=== PATIENT | female | born 1975 | race Asian ===

== ENCOUNTER 2017-02-21 20:27 | Emergency (ER) | payer OTHER ==
[2017-02-21 20:34] VITALS: BP 111/75; PULSE 82; TEMP 98.3; BMI 19.3
[2017-02-21 20:38] LABS: PH,URINE 7.5 (4.5-8); URINE BILIRUBIN Negative (NEGATIVE); URINE BLOOD 3+ (NEGATIVE); URINE COLOR YELLOW; URINE GLUCOSE (UA) Negative (NEGATIVE); URINE KETONE Negative (NEGATIVE); URINE LEUK ESTERASE Negative (NEGATIVE); URINE NITRITE Negative (NEGATIVE); URINE PROTEIN Trace (NEGATIVE)
[2017-02-21 20:39] LABS: URINE APPEARANCE SL CLOUDY
--- NOTE | 2017-02-21 21:06 | PDOC ---
History of Present Illness - General History Source: Patient - History of Present Illness Initial Comments: 02/21/17 21:20 The patient is a 41 year old female, 8 weeks , with a significant past medical history of hypothyroidism, who presents to the emergency department with vaginal spotting for 4 days and new onset of left lower quadrant pain today. The patient reports brownish, light spotting for the first 3 days, however, reports the discharge is more red today. She states she was not concerned about the spotting at first because the brown spotting happened when I was with my 13 year old. She states she became concerned today when the spotting was red and associated with some very mild left lower quadrant cramping. She denies seeing her nutritional services host for this , however, has an appointment scheduled and reportedly called the office prior to her arrival today where she was advised to come to the ED for evaluation. She denies chest pain, shortness of breath, headache and dizziness. She denies fever, chills, nausea, vomit, diarrhea and constipation. She denies dysuria, frequency, urgency and hematuria. Allergies: NKDA Past surgical history: none reported Social history: denies toxic habits <Abi Sandoval - Last Filed: 02/21/17 21:20> <Eduardo Storey - Last Filed: 02/22/17 04:39> - General Chief Complaint: Pain, Acute Stated Complaint: LLQ PAIN , AND BLEEDING Time Seen by Provider: 02/21/17 20:39 Past History <Abi Sandoval - Last Filed: 02/21/17 21:20> - Past Medical History COPD: No Other medical history: DENIES - Suicide/Smoking/Psychosocial Hx Smoking History: Never smoked Have you smoked in the past 12 months: No Information on smoking cessation initiated: No Hx Alcohol Use: No Drug/Substance Use Hx: No Substance Use Type: None <Eduardo Storey - Last Filed: 02/22/17 04:39> - Past Medical History Allergies/Adverse Reactions: Allergies Allergy/AdvReac Type Severity Reaction Status Date / Time No Known Allergies Allergy Verified 02/21/17 20:29 Home Medications: Ambulatory Orders NK [No Known Home Medication] 02/21/17 Review of Systems - Review of Systems Able to Perform ROS?: Yes Comments:: 02/21/17 21:20 CONSTITUTIONAL: Absent: fever, chills, diaphoresis, generalized weakness, malaise, loss of appetite HEENT: Absent: rhinorrhea, nasal congestion, throat pain, throat swelling, difficulty swallowing, mouth swelling, ear pain, eye pain, visual Changes CARDIOVASCULAR: Absent: chest pain, syncope, palpitations, irregular heart rate, lightheadedness , peripheral edema RESPIRATORY: Absent: cough, shortness of breath, dyspnea with exertion, orthopnea, wheezing, stridor, hemoptysis GASTROINTESTINAL: (+) left lower abdominal pain, Absent: abdominal distension, nausea, vomiting, diarrhea, constipation, melena, hematochezia GENITOURINARY: Absent: dysuria, frequency, urgency, hesitancy, hematuria, flank pain, genital pain REPRODUCTIVE: (+) vaginal bleeding, 8 weeks MUSCULOSKELETAL: Absent: myalgia, arthralgia, joint swelling SKIN: Absent: rash, itching, pallor HEMATOLOGIC/IMMUNOLOGIC: Absent: easy bleeding, easy bruising, lymphadenopathy, frequent infections ENDOCRINE: Absent: unexplained weight gain, unexplained weight loss, heat intolerance, cold intolerance NEUROLOGIC: Absent: headache, focal weakness or paresthesias, dizziness, unsteady gait, seizure, mental status changes, bladder or bowel incontinence PSYCHIATRIC: Absent: anxiety, depression, suicidal or homicidal ideation, hallucinations. <Abi Sandoval - Last Filed: 02/21/17 21:20> *Physical Exam - Vital Signs Last Vital Signs Temp Pulse Resp BP Pulse Ox 98.3 F 82 12 111/75 100 02/21/17 20:30 02/21/17 20:30 02/21/17 20:30 02/21/17 20:30 02/21/17 20:30 - Physical Exam Comments: 02/21/17 21:21 GENERAL: Well developed, well nourished. Awake and alert. No acute distress. HEENT: Normocephalic, atraumatic. PERRLA, EOMI. No conjunctival pallor. Sclera are non- icteric. Moist mucous membranes. Oropharynx is clear. NECK: Supple. Full ROM. No JVD. Carotid pulses 2+ and symmetric, without bruits. No thyromegaly. No lymphadenopathy. CARDIOVASCULAR: Regular rate and rhythm. No murmurs, rubs, or gallops. Distal pulses are 2+ and symmetric. PULMONARY: No evidence of respiratory distress. Lungs clear to auscultation bilaterally. No wheezing, rales or rhonchi ABDOMINAL: Soft. Non-tender. Non-distended. No rebound or guarding. No organomegaly. Normoactive bowel sounds. MUSCULOSKELETAL Normal range of motion at all joints. No bony deformities or tenderness. No CVA tenderness. EXTREMITIES: No cyanosis. No clubbing. No edema. No calf tenderness. SKIN: Warm and dry. Normal capillary refill. No rashes. No jaundice. NEUROLOGICAL: Alert, awake, appropriate. Cranial nerves 2-12 intact. No deficits to light touch and temperature in face, upper extremities and lower extremities. No motor deficits in the in face, upper extremities and lower extremities. Normoreflexic in the upper and lower extremities. Normal speech. Gait is normal without ataxia. PSYCHIATRIC: Cooperative. Good eye contact. Appropriate mood and affect. PELVIC: (+) Cervical Os is closed. Blood pooled in vaginal vault. Slightly enlarged uterus, no adnexal mass or tenderness. POCUS reveals an enlarged uterus and visible gestational sac without visualized yolk sac, positive double decidual sign. No pole visualized. No free fluid. No adnexal mass. <Abi Sandoval - Last Filed: 02/21/17 21:20> - Vital Signs Last Vital Signs Temp Pulse Resp BP Pulse Ox 98.3 F 82 12 111/75 100 02/21/17 20:30 02/21/17 20:30 02/21/17 20:30 02/21/17 20:30 02/21/17 20:30 <Eduardo Storey - Last Filed: 02/22/17 04:39> ED Treatment Course - ADDITIONAL ORDERS Additional order review: Laboratory Results 02/21/17 20:30 Urine Color Yellow Urine Appearance Sl cloudy Urine pH 7.5 Ur Specific [place] 1.020 Urine Protein Trace Urine Glucose (UA) Negative Urine Ketones Negative Urine Blood 3+ H Urine Nitrite Negative Urine Bilirubin Negative Urine Urobilinogen 1.0 Ur Leukocyte Esterase Negative Urine HCG, Qual Positive <Abi Sandoval - Last Filed: 02/21/17 21:20> - ADDITIONAL ORDERS Additional order review: Laboratory Results 02/21/17 20:30 Urine Color Yellow Urine Appearance Sl cloudy Urine pH 7.5 Ur Specific [place] 1.020 Urine Protein Trace Urine Glucose (UA) Negative Urine Ketones Negative Urine Blood 3+ H Urine Nitrite Negative Urine Bilirubin Negative Urine Urobilinogen 1.0 Ur Leukocyte Esterase Negative Urine HCG, Qual Positive <Eduardo Storey - Last Filed: 02/22/17 04:39> Medical Decision Making - Medical Decision Making 02/22/17 04:38 threatened ab Rh+ ectopic not definitively r/o'd - warning signs discussed with pt has ob f/u <Eduardo Storey - Last Filed: 02/22/17 04:39> *DC/Admit/Observation/Transfer - Attestations Scribe Attestion: 02/21/17 21:21 Documentation prepared by Abi Sandoval, acting as front office medical assistant for Eduardo Storey MD <Abi Sandoval - Last Filed: 02/21/17 21:20> <Eduardo Storey - Last Filed: 02/22/17 04:39> Diagnosis at time of Disposition: Threatened - Discharge Dispostion Disposition: HOME Condition at time of disposition: Stable - Patient Instructions Printed Discharge Instructions: DI for Threatened Additional Instructions: We have not definitely ruled out a tubal , but it seems less likely based on the results of the sonogram and the exam. You should return to the ER if you have increased pain or increased bleeding. Please followup with your OB tomorrow. We will call you with the results of your blood type
[2017-02-21 21:23] LABS: URINE RBC >100 /hpf (0-3)
== END 2017-02-21 21:11 | disposition home or self-care (01) ==
LOC: FER 20:27
DX: O26.891 Other specified pregnancy related conditions, first trimester (principal); O20.0 Threatened abortion; Z3A.08 8 weeks gestation of pregnancy; E03.9 Hypothyroidism, unspecified
CPT/HCPCS: 36415; 81003; 81015; 84702; 84703; 86850; 86900; 86901; 99282-25